=== PATIENT | male | born 1960 | race Caucasian/White ===

== ENCOUNTER 2018-06-19 15:21 | Emergency (ER) | payer OTHER ==
[2018-06-19 15:28] VITALS: BP 146/94; PULSE 61; RESP 18; TEMP 97.8
[2018-06-19] MEDS ORDERED: ACET/COD 300 MG/30 MG STARTER PACK 6 TAB BTL PO STA (15:50)
--- NOTE | 2018-06-19 15:50 | ED ---
ENT HPI - General Chief complaint: Dental/Oral Stated complaint: Dental pain Time Seen by Provider: 06/19/18 15:37 Source: patient, RN notes reviewed Mode of arrival: ambulatory Limitations: no limitations - History of Present Illness Initial comments: 58-year-old male presents emergency Department chief complaint of dental pain. Patient states started last 24 hours. Patient states he feels pain on his upper teeth, palate region. He does have a partial denture and states that he has pain in the right molar region. Patient denies fevers or chills and swelling no headache no dizziness no pressure in his periorbital region. Patient offers no other complaints. - Related Data Previous Rx's Medication Instructions Recorded Ibuprofen [Motrin] 600 mg PO Q8HR PRN #30 tab 06/19/18 Penicillin V Potassium [Pen Vee K] 500 mg PO QID #40 tablet 06/19/18 Allergies Allergy/AdvReac Type Severity Reaction Status Date / Time No Known Allergies Allergy Verified 06/19/18 15:32 Review of Systems ROS Statement: Those systems with pertinent positive or pertinent negative responses have been documented in the HPI. ROS Other: All systems not noted in ROS Statement are negative. Past Medical History Past Medical History: No Reported History History of Any Multi-Drug Resistant Organisms: None Reported Additional Past Surgical History / Comment(s): throat surgery, knee surgery Past Psychological History: No Psychological Hx Reported Smoking Status: Current every day smoker Past Alcohol Use History: Occasional Past Drug Use History: None Reported General Exam Limitations: no limitations General appearance: alert, in no apparent distress Head exam: Present: atraumatic, normocephalic, normal inspection Eye exam: Present: normal appearance, PERRL, EOMI. Absent: scleral icterus, conjunctival injection, periorbital swelling ENT exam: Present: mucous membranes moist, TM's normal bilaterally. Absent: normal oropharynx (Mild erythema in the right upper dental region, there is a sore noted on the right side of the palate no fluctuant areas no noted abscess.) Neck exam: Present: normal inspection, full ROM. Absent: tenderness, meningismus, lymphadenopathy Respiratory exam: Present: normal lung sounds bilaterally. Absent: respiratory distress, wheezes, rales, rhonchi, stridor Cardiovascular Exam: Present: regular rate, normal rhythm, normal heart sounds. Absent: systolic murmur, diastolic murmur, rubs, gallop, clicks Course Vital Signs 06/19/18 15:25 Temperature 97.8 F Pulse Rate 61 Respiratory 18 Rate Blood Pressure 146/94 O2 Sat by Pulse 97 Oximetry Medical Decision Making - Medical Decision Making 58-year-old male presented for right-sided dental pain. Patient does have underlying dental infection. I did explain that he does have sore or erosion on his right side palate he should not wear his partial denture he has a follow- up on Thursday with his dentist to be started on antibiotics and anti- inflammatories. Return parameters were discussed. Disposition Clinical Impression: Dental infection Disposition: HOME SELF-CARE Condition: Stable Instructions: Toothache (ED) Additional Instructions: Please return to the Emergency Department if symptoms worsen or any other concerns. Prescriptions: Ibuprofen [Motrin] 600 mg PO Q8HR PRN #30 tab PRN Reason: Pain Penicillin V Potassium [Pen Vee K] 500 mg PO QID #40 tablet Is patient prescribed a controlled substance at d/c from ED?: No Referrals: Lula Guerrero DO [Primary Care Provider] - 1-2 days Time of Disposition: 15:50
== END 2018-06-19 16:13 | disposition home or self-care (01) ==
LOC: EC 15:21
DX: K04.7 Periapical abscess without sinus (principal); F17.200 Nicotine dependence, unspecified, uncomplicated; Z97.2 Presence of dental prosthetic device (complete) (partial)
CPT/HCPCS: 41800; 99282; 99283

== ENCOUNTER 2018-06-19 21:48 | Emergency (ER) | payer OTHER ==
[2018-06-19 21:53] VITALS: BP 161/94; PULSE 71; RESP 20; TEMP 98.2
[2018-06-19] MEDS ORDERED: BUPIVACAINE (PF) 0.5% 30 ML VIAL SQ STA (22:09)
[2018-06-19] MEDS ORDERED: CLINDAMYCIN 150 MG CAP PO STA (22:56)
[2018-06-19] MEDS ORDERED: HYDROcodone/APAP 10-325MG 1 EACH TAB PO ONE (22:56)
--- NOTE | 2018-06-19 22:58 | ED ---
ENT HPI - General Source: patient, family, RN notes reviewed, old records reviewed Mode of arrival: ambulatory Limitations: no limitations <Cheyenne Abernathy - Last Filed: 06/20/18 10:38> <Lisy Mata - Last Filed: 06/20/18 21:46> - General Chief complaint: Dental/Oral Stated complaint: Dental pain Time Seen by Provider: 06/19/18 22:09 - History of Present Illness Initial comments: Patient's 58-year-old male presents for reevaluation of dental pain. Patient reports that he has pain over the upper right molars. Patient seen unchanged discharged with penicillin and ibuprofen. Patient states this pain. Patient's concern is as worsening swelling over the roof of his mouth. Patient denies any fever or chills. He reports he does have an appointment with the dentist next week. Patient denies any recent fever, chills, shortness of breath, chest pain, back pain, abdominal pain, nausea vomiting, numbness or tingling, dysuria or hematuria, constipation or diarrhea, headaches or visual changes, or any other current symptoms (Cheyenne Abernathy) - Related Data Previous Rx's Medication Instructions Recorded Clindamycin [Cleocin] 450 mg PO TID 7 Days capsule 06/19/18 HYDROcodone/APAP 5-325MG [[place] 1 tab PO Q6HR PRN #15 tab 06/19/18 5-325] Ibuprofen [Motrin] 600 mg PO Q8HR PRN #30 tab 06/19/18 Penicillin V Potassium [Pen Vee K] 500 mg PO QID #40 tablet 06/19/18 Allergies Allergy/AdvReac Type Severity Reaction Status Date / Time No Known Allergies Allergy Verified 06/19/18 21:53 Review of Systems ROS Other: All systems not noted in ROS Statement are negative. <Cheyenne Abernathy - Last Filed: 06/20/18 10:38> ROS Other: All systems not noted in ROS Statement are negative. <Lisy Mata - Last Filed: 06/20/18 21:46> ROS Statement: Those systems with pertinent positive or pertinent negative responses have been documented in the HPI. Past Medical History Past Medical History: No Reported History History of Any Multi-Drug Resistant Organisms: None Reported Additional Past Surgical History / Comment(s): throat surgery, knee surgery Past Psychological History: No Psychological Hx Reported Smoking Status: Current every day smoker Past Alcohol Use History: Occasional Past Drug Use History: None Reported <Cheyenne Abernathy - Last Filed: 06/20/18 10:38> General Exam Limitations: no limitations General appearance: alert, in no apparent distress Head exam: Present: atraumatic, normocephalic, normal inspection Eye exam: Present: normal appearance, PERRL, EOMI. Absent: scleral icterus, conjunctival injection, periorbital swelling ENT exam: Present: normal exam, mucous membranes moist, TM's normal bilaterally , other (Patient has evidence of the upper dental abscess over the right molar.) Neck exam: Present: normal inspection. Absent: tenderness, meningismus, lymphadenopathy Respiratory exam: Present: normal lung sounds bilaterally. Absent: respiratory distress, wheezes, rales, rhonchi, stridor Extremities exam: Present: normal inspection, full ROM, normal capillary refill. Absent: tenderness, pedal edema, joint swelling, calf tenderness Back exam: Present: normal inspection <Cheyenne Abernathy - Last Filed: 06/20/18 10:38> <Lisy Mata P - Last Filed: 06/20/18 21:46> - General Exam Comments Initial Comments: [id number] male. Alert and oriented. Patient appears in mild to moderate discomfort. (Cheyenne Abernathy) Vital Signs 06/19/18 21:50 Temperature 98.2 F Pulse Rate 71 Respiratory 20 Rate Blood Pressure 161/94 O2 Sat by Pulse 98 Oximetry Procedures - Incision & Drainage Site: oral (Over upper right molars.) Size (cm): 3 Anesthetic Used: lidocaine 1% Scalpel Used: #11 I&D Drainage Obtained: Pus, Blood Patient Tolerated Procedure: well, no complications <Cheyenne Abernathy - Last Filed: 06/20/18 10:38> Medical Decision Making <Cheyenne Abernathy - Last Filed: 06/20/18 10:38> <Lisy Mata P - Last Filed: 06/20/18 21:46> - Medical Decision Making 58-year-old male presents emergency with a dental abscess. I did use lidocaine and injected the area. He is an 11 blade scalpel to drain the abscess. Bloody purulent fluid was removed from the area. Patient had relief after the pressure was removed. At this time I will have the Patient start clindamycin as well as give Patient struck her pain medication at this time. Patient advised to have close follow-up with his dentist. Patient is treatment plan will comply. Return parameters were discussed. (Cheyenne Abernathy) I was available for consultation in the emergency department. The history and physical exam were done by the Midlevel Provider. Medical decision making was done by the Midlevel Provider. The Midlevel Provider did not contact me for this patient's care. I was not directly involved in this patient's care. (Lisy Mata) Disposition Is patient prescribed a controlled substance at d/c from ED?: Yes If prescribed controlled substance>3 days was MAPS reviewed?: Prescribed <3 Days Time of Disposition: 22:57 <Cheyenne Abernathy - Last Filed: 06/20/18 10:38> <Lisy Mata - Last Filed: 06/20/18 21:46> Clinical Impression: Dental abscess Disposition: HOME SELF-CARE Condition: Good Instructions: Dental Abscess (ED) Additional Instructions: Follow-up with your dentist. Frequent salt water and Listerine rinses of the mouth. Return to emergency department if any alarming signs or symptoms occur. Prescriptions: Clindamycin [Cleocin] 450 mg PO TID 7 Days capsule HYDROcodone/APAP 5-325MG [[place] 5-325] 1 tab PO Q6HR PRN #15 tab PRN Reason: Pain Referrals: Lula Guerrero DO [Primary Care Provider] - 1-2 days
== END 2018-06-19 23:13 | disposition home or self-care (01) ==
LOC: EC 21:48
DX: K04.7 Periapical abscess without sinus (principal); F17.200 Nicotine dependence, unspecified, uncomplicated
CPT/HCPCS: 41800; 99283

== ENCOUNTER 2020-02-05 16:45 | Emergency (ER) | payer OTHER ==
[2020-02-05] MEDS ORDERED: LIDOCAINE 1% INJ 10MG/ML (20 ML MDV) SQ ONE (17:09)
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
[2020-02-05] MEDS ORDERED: KETOROLAC 60 MG/2 ML VIAL IM STA (18:23)
--- NOTE | 2020-02-05 18:41 | XR ---
EXAMINATION TYPE: XR shoulder complete RT DATE OF EXAM: 02/05/2020 COMPARISON: NONE HISTORY: Fall. Pain. TECHNIQUE: 3 views FINDINGS: I see no fracture nor dislocation. Joint spaces are normal. There are no pathologic calcifi cations. IMPRESSION: Negative right shoulder exam. No fracture seen.
[2020-02-05] MEDS ORDERED: ACET/COD 300 MG/30 MG STARTER PACK 6 TAB BTL PO STA (19:32)
[2020-02-05 20:34] VITALS: BP 131/85; PULSE 65; RESP 17; TEMP 97.4
== END 2020-02-05 20:35 | disposition home or self-care (01) ==
LOC: EC 16:45
DX: S01.81XA Laceration without foreign body of other part of head, initial encounter (principal); M25.561 Pain in right knee; M25.511 Pain in right shoulder; F17.200 Nicotine dependence, unspecified, uncomplicated; Z98.890 Other specified postprocedural states; V47.5XXA Car driver injured in collision with fixed or stationary object in traffic accident, initial encounter; Y92.488 Other paved roadways as the place of occurrence of the external cause; Y93.89 Activity, other specified
CPT/HCPCS: 73030; 72125; 70450; 99284; 96372; 12004; J2001; J1885